=== PATIENT | female | born 1990 | race Caucasian/White ===

== ENCOUNTER 2018-06-22 09:54 | Emergency (ER) | payer OTHER ==
[2018-06-22] MEDS ORDERED: Alum Hydrox/Mag Hydrox/Simeth 30 ML, Lidocaine 2% 15 ML PO ONE ×2 (10:46)
--- NOTE | 2018-06-22 12:00 | EDM.PDOC ---
ED HPI GENERAL MEDICAL PROBLEM - General Chief Complaint: Chest Pain Stated Complaint: CHEST PAIN Time Seen by Provider: 06/22/18 10:14 Source of Information: Reports: Patient History Limitations: Reports: No Limitations - History of Present Illness INITIAL COMMENTS - FREE TEXT/NARRATIVE: 27-year-old female presents to #which is complaints of sudden onset chest pain that started 2 hours ago. She reports the pain as a stabbing pain that radiates to her back. She denies any nausea vomiting shortness of breath, no chills or fever. Patient does report she has a history of bilateral PEs 2 years ago and is currently taking 5 mg daily. She does report feeling a tingling sensation in her face intermittently and does this may be due to her anxiety. Onset: Today, Sudden Onset Date: 06/22/18 Onset Time: 08:00 Duration: Getting Worse Location: Reports: Chest Quality: Reports: Ache Severity: Mild Improves with: Reports: None Worsens with: Reports: None Associated Symptoms: Denies: Cough, Fever/Chills, Shortness of Breath Mid-Sternal Pain Score (Numeric/FACES): 8 - Related Data Allergies Allergy/AdvReac Type Severity Reaction Status Date / Time heparin Allergy Hives Verified 06/22/18 10:08 morphine Allergy Rash Verified 06/22/18 10:08 Home Meds: Home Meds Apixaban [Eliquis] 5 mg PO DAILY 06/22/18 [History] Omeprazole Magnesium [Prilosec Otc] 20 mg PO DAILY 14 Days #21 tablet. [Rx] Sertraline [Zoloft] 200 mg PO DAILY 06/22/18 [History] Past Medical History HEENT History: Reports: Impaired Vision Other HEENT History: wear Cardiovascular History: Reports: Blood Clots/VTE/DVT Social & Family History - Tobacco Use Smoking Status *Q: Never Smoker Second Hand Smoke Exposure: No - Caffeine Use Caffeine Use: Reports: None - Recreational Drug Use Recreational Drug Use: No ED ROS GENERAL - Review of Systems Review Of Systems: See Below Constitutional: Denies: Fever, Chills HEENT: Reports: No Symptoms Respiratory: Reports: Other (History of pulmonary emboli). Denies: Shortness of Breath Cardiovascular: Reports: Chest Pain Endocrine: Reports: No Symptoms GI/Abdominal: Reports: No Symptoms : Reports: No Symptoms Musculoskeletal: Reports: No Symptoms Skin: Reports: No Symptoms Neurological: Reports: No Symptoms Psychiatric: Reports: No Symptoms Hematologic/Lymphatic: Reports: No Symptoms Immunologic: Reports: No Symptoms ED EXAM, GENERAL - Physical Exam Exam: See Below Exam Limited By: No Limitations General Appearance: Alert, WD/WN, No Apparent Distress Head: Atraumatic, Normocephalic Neck: Normal Inspection, Supple, Non-Tender, Full Range of Motion Respiratory/Chest: No Respiratory Distress, Lungs Clear, Normal Breath Sounds, No Accessory Muscle Use, Chest Non-Tender Cardiovascular: Normal Peripheral Pulses, Regular Rate, Rhythm, No Edema, No Gallop, No JVD, No Murmur, No Rub GI/Abdominal: Normal Bowel Sounds, Soft, Non-Tender, No Organomegaly, No Distention, No Abnormal Bruit, No Mass, Pelvis Stable Back Exam: Normal Inspection, Full Range of Motion Extremities: Normal Inspection, Normal Range of Motion, Non-Tender, No Pedal Edema, Normal Capillary Refill Neurological: Alert, Oriented, CN II-XII Intact, Normal Cognition, Normal Gait Psychiatric: Normal Affect, Normal Mood Skin Exam: Warm, Dry, Intact, Normal Color, No Rash Lymphatic: No Adenopathy EKG INTERPRETATION EKG Date: 06/22/18 Time: 10:26 Rhythm: NSR Rate (Beats/Min): 87 EKG Interpretation Comments: Normal sinus rhythm rate of 57. Early RB wave transition, consider RVH, may be related to age. Otherwise normal ECG Course - Vital Signs Last Recorded V/S: Last Vital Signs Temp 97.0 F 06/22/18 10:05 Pulse 93 06/22/18 10:05 Resp 28 H 06/22/18 10:05 BP 144/102 H 06/22/18 10:05 Pulse Ox 100 06/22/18 10:05 - Orders/Labs/Meds Orders: Active Orders 24 hr Category Date Time Status EKG Documentation Completion [RC] STAT Care 06/22/18 10:28 Active Chest 2V [CR] Stat Exams 06/22/18 10:28 Taken Labs: Laboratory Tests 06/22/18 06/22/18 Range/Units 11:10 11:10 WBC 8.02 (3.98-10.04) K/mm3 RBC 4.83 (3.98-5.22) M/mm3 Hgb 13.7 (11.2-15.7) gm/L Hct 41.3 (34.1-44.9) % MCV 85.5 (79.4-94.8) fl MCH 28.4 (25.6-32.2) pg MCHC 33.2 (32.2-35.5) g/dl RDW Std Deviation 42.2 (36.4-46.3) fL Plt Count 232 (182-369) K/mm3 MPV 10.5 (9.4-12.3) fl Neut % (Auto) 57.9 (34.0-71.1) % Lymph % (Auto) 31.9 (19.3-51.7) % [facility] % (Auto) 6.7 (4.7-12.5) % Eos % (Auto) 3.0 (0.7-5.8) Baso % (Auto) 0.4 (0.1-1.2) % Neut # (Auto) 4.64 (1.56-6.13) K/mm3 Lymph # (Auto) 2.56 (1.18-3.74) K/mm3 [facility] # (Auto) 0.54 H (0.24-0.36) K/mm3 Eos # (Auto) 0.24 (0.04-0.36) K/mm3 Baso # (Auto) 0.03 (0.01-0.08) K/mm3 Sodium 139 (136-145) mEq/L Potassium 3.7 (3.5-5.1) mEq/L Chloride 103 (98-107) mEq/L Carbon Dioxide 25 (21-32) mEq/L Anion Gap 14.7 (5-15) BUN 9 (7-18) mg/dL Creatinine 0.8 (0.55-1.02) mg/dL Est Cr Clr Drug Dosing 109.41 mL/min Estimated GFR (MDRD) > 60 (>60) mL/min BUN/Creatinine Ratio 11.3 L (14-18) Glucose 192 H (74-106) mg/dL Calcium 8.6 (8.5-10.1) mg/dL Total Bilirubin 0.5 (0.2-1.0) mg/dL AST 52 H (15-37) U/L ALT 89 H (14-59) U/L Alkaline Phosphatase 56 (46-116) U/L CK-MB (CK-2) < 0.5 (0-3.6) ng/ml Troponin I < 0.017 (0.00-0.056) ng/mL Total Protein 7.9 (6.4-8.2) g/dl Albumin 3.7 (3.4-5.0) g/dl Globulin 4.2 gm/dL Albumin/Globulin Ratio 0.9 L (1-2) Meds: Medications Discontinued Medications Generic Name Dose Route Start Last Admin Trade Name Dar PRN Reason Stop Dose Admin Al Hydroxide/Mg Hydroxide 30 0 ml 06/22/18 10:46 06/22/18 10:56 ml/ Lidocaine HCl 15 ml PO 06/22/18 10:47 45 ml ONETIME ONE Administration - Re-Assessments/Exams Free Text/Narrative Re-Assessment/Exam: 06/22/18 11:54 27-year-old female presents to [facility] chief complaints of sudden onset substernal chest pain. Her chest x-ray was unremarkable. EKG revealed normal sinus rhythm rate 87. WBC 8.02 RBC 4.83 H&H 13.7 and 41.3 She received GI cocktail and her condition improved. I feel that her pain is related to GERD. I will discharge him with Prilosec. Instructed patient on low fat diet. Instructed patient to follow up with her PCP. Instructed patient to continue acute worsening symptoms. 06/22/18 12:08 Sodium 139 potassium 3.7 chloride 103 CO2 25 x 9 creatinine 0.8. Glucose was elevated 192 I think this is stress related. She does have a slightly elevated AST of 52 and ALT of 89. Her troponin is negative at 0.017. I will discharge home on a low-fat diet. Departure - Departure Time of Disposition: 12:08 Disposition: Home, Self-Care 01 Condition: Good Clinical Impression: Atypical chest pain, Esophagitis Prescriptions: Omeprazole Magnesium [Prilosec Otc] 20 mg PO DAILY 14 Days #21 tablet.dr Instructions: Food Choices for Gastroesophageal Reflux Disease, Child, Easy-to- Read, Gastroesophageal Reflux Disease, Adult, [id number] Referrals: Oscar Ferrell MD [Primary Care Provider] - Forms: ED Department Discharge Additional Instructions: You have been diagnosed with having GERD. Your chest x-ray revealed no acute findings. Her EKG was normal sinus rhythm with no irregular beats. Recommend that she follow low-fat diet. Treatment prescribed Prilosec. You should take 2 tablets daily for 7 days then 1 tablet daily. I recommend he follow up with your PCP. Return to the emergency room for any new or acutely worsening symptoms. - My Orders Last 24 Hours: My Active Orders 06/22/18 10:28 EKG Documentation Completion [RC] STAT Chest 2V [CR] Stat - Assessment/Plan Last 24 Hours: My Active Orders 06/22/18 10:28 EKG Documentation Completion [RC] STAT Chest 2V [CR] Stat
--- NOTE | 2018-06-23 08:26 | CR ---
Chest: Two views of the chest were obtained. Comparison: No prior chest x-ray. Heart size and mediastinum are normal. Lungs are clear. Bony structures are unremarkable. Impression: 1. Nothing acute is seen on two-view chest x-ray. Diagnostic code #1
== END 2018-06-22 12:25 | disposition home or self-care (01) ==
LOC: JD.ED 09:54
DX: K20.9 Esophagitis, unspecified (principal); Z88.8 Allergy status to other drugs, medicaments and biological substances
CPT/HCPCS: 36415; 71046; 80053; 82553; 84484; 85025; 93005; 99285; A9270; 93010; 99284

== ENCOUNTER 2020-02-06 20:33 | Emergency (ER) | payer BC, OTHER ==
[2020-02-06] MEDS ORDERED: Dextrose 5%-0.9% NaCl 1,000 ML IV SCH (21:00)
--- NOTE | 2020-02-06 21:07 | EDM.PDOC ---
ED HPI GENERAL MEDICAL PROBLEM - General Chief Complaint: Respiratory Problem Stated Complaint: COVID+/DOUBLE PNEUMONIA/SOB Time Seen by Provider: 02/06/20 20:53 Source of Information: Reports: Patient History Limitations: Reports: No Limitations - History of Present Illness INITIAL COMMENTS - FREE TEXT/NARRATIVE: 29-year-old female presents to the ED due to hypoxemia identified by pulse oximeter at home. Patient started with symptoms last January 29 with fever and chills followed by development of a nonproductive cough. She was tested on Sunday for COVID-19 and found out today that she is COVID-19 positive. She was seen at [facility] today diagnosed with bilateral pneumonia by chest x-ray and started on on Augmentin 875/125 mg twice daily and an albuterol metered-dose inhaler. Patient reports that she has had fairly severe diarrhea 6-8 times per day brown high-volume fluid loss per rectum for the last 4 days. Complete loss of appetite. Thirsty. Patient is on Eliquis 5 mg once daily due to bilateral multiple pulmonary emboli diagnosed 4 years ago after starting oral control pill. 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 She has no known heart disease. She is obese with a BMI of 40.6. She reports pulse oximeter showed sats of 73% at home tonight. Associated course of dyspnea at home. Continues to have a paroxysmal somewhat productive sounding cough of white sputum. Denies any hemoptysis. She states her and son are ill with similar symptoms. Triage nurse placed the patient on 4 L of oxygen per nasal cannula and achieves O2 sats of 98%. O2 sats upon admission to the ED through triage without any oxygen was 83%. Patient reports she cannot lay flat as this makes her coughing and shortness of breath much worse. Onset: Gradual Onset Date: 01/30/20 (Developed symptoms of fever chills body aches headache a week ago.) Duration: Day(s):, Constant, Getting Worse Location: Reports: Chest (.), Generalized (Generalized myalgia with headache), Other ( Paroxysmal cough with productive white sputum. Continues to have fever intermittent chills with complete loss of appetite and associated diarrhea x4 days) Quality: Reports: Other (Generalized myalgia. Complains of thirst and headache) Severity: Severe Improves with: Reports: None Worsens with: Reports: Other (Lying flat makes her much more short of breath as well.), Movement Context: Reports: Sick Contact, Other (Diagnosed with COVID-19 positivity today. Tested on Sunday, February 01). Denies: Activity, Exercise, Lifting, Trauma Associated Symptoms: Reports: Cough, cough w sputum (Paroxysmal cough), Diaphoresis ( white sputum), Fever/Chills, Headaches, Loss of Appetite, Malaise, Nausea/Vomiting, Shortness of Breath, Weakness (Mild nausea no vomiting generalized weakness). Denies: Confusion, Chest Pain, Rash, Seizure, Syncope Treatments CURRICULUM DEVELOPMENT MANAGER: Reports: Acetaminophen Chest Pain Score (Numeric/FACES): 7 - Related Data Allergies Allergy/AdvReac Type Severity Reaction Status Date / Time heparin Allergy Severe Hives Verified 02/06/20 21:04 morphine Allergy Severe Rash Verified 02/06/20 21:04 Home Meds: Home Meds Apixaban [Eliquis] 5 mg PO DAILY 06/22/18 [History] Sertraline [Zoloft] 200 mg PO DAILY 06/22/18 [History] Albuterol Sulfate [Proventil Hfa] 2 puff INH ASDIRECTED 02/06/20 [History] Amoxicillin/Clavulanate K [Augmentin 875-125 MG] 1 tab PO BID 02/06/20 [History] Past Medical History HEENT History: Reports: Impaired Vision Other HEENT History: wear Cardiovascular History: Reports: Blood Clots/VTE/DVT Respiratory History: Reports: Other (See Below) (Patient was diagnosed with bi lateral multiple pulmonary emboli 4 days after starting oral contraceptive pill 4 years ago. Subsequently was identified to be protein S deficient and is maintained on Eliquis 5 mg once daily. She does not know if she has any evidence of pulmonary hypertension on echocardiogram.) Psychiatric History: Reports: Anxiety, Depression Social & Family History - Caffeine Use Caffeine Use: Reports: None - Living Situation & Occupation Living situation: Reports: (Recently got . Is a son at home. Both her and son have signs and symptoms of COVID-19 illness.), with Spouse Occupation: Unemployed ED ROS GENERAL - Review of Systems Review Of Systems: See Below Constitutional: Reports: Fever, Chills, Malaise, Weakness, Fatigue, Diaphoresis, Decreased Appetite HEENT: Reports: Other Respiratory: Reports: Shortness of Breath (Feels thirsty with very dry mouth.), Cough, Sputum (Of your paroxysmal cough to the point of near syncope.), Other (Struve bilateral pulmonary emboli diagnosed 4 years ago 4 days after starting oral contraceptive pill. Subsequently identified to be protein S deficient and required Eliquis 5 mg once daily which she remains on.). Denies: Wheezing, Pleuritic Chest Pain, Hemoptysis (White sputum no hemoptysis.) Cardiovascular: Reports: Chest Pain (Upper anterior chest pain from coughing so much.), Dyspnea on Exertion, Lightheadedness, Orthopnea. Denies: Blood Pressure Problem, Claudication, Edema, Palpitations Endocrine: Reports: Fatigue GI/Abdominal: Reports: Anorexia, Diarrhea (States diarrhea is high-volume fluid loss of brownish in color at x4 to 6/day for the last 4 days.), Nausea. Denies: Vomiting : Reports: No Symptoms Musculoskeletal: Reports: Muscle Pain (Neurolyse myalgia particularly neck low back and thighs.) Skin: Reports: No Symptoms Neurological: Reports: Dizziness, Headache, Difficulty Walking (Weakness. Also shortness of breath.), Weakness. Denies: Confusion Psychiatric: Reports: Anxiety (History of depression and anxiety), Depression Hematologic/Lymphatic: Reports: No Symptoms ( on sertraline once daily) Immunologic: Reports: No Symptoms ED EXAM, GENERAL - Physical Exam Exam: See Below Exam Limited By: No Limitations General Appearance: Alert, WD/WN, Anxious (Zackery anxious.), Moderate Distress, Obese (BMI is greater than 40.), Other (Temperature is 37.8. Heart rate 111 at the bedside respiratory 24 to 26/min with O2 sats of 83% on room air. Improved to 97% on 4 L. Subsequently reduced to 2 L/min with maintenance of O2 sats of 94%.) Eye Exam: Bilateral Eye: Normal Inspection (No scleral icterus or blepharal pallor.), PERRL Throat/Mouth: Other (Tongue is dry and coated.) Head: Atraumatic ( No oropharyngeal infection.), Normocephalic Neck: Normal Inspection, Supple, Non-Tender, Full Range of Motion. No: Carotid Bruit, Lymphadenopathy (L), Lymphadenopathy (R), Thyromegaly Respiratory/Chest: No Accessory Muscle Use, Respiratory Distress (Tachypnea at rest 24 to 26/min with O2 sats of only 83% on room air.), Decreased Breath Sounds (Breath sounds are mildly decreased to the lower 20% of lung cardenas bilaterally), Rales. No: Lungs Clear, Normal Breath Sounds, Rhonchi, Wheezing (Fine rales scattered throughout the posterior lung cardenas bilaterally.) Cardiovascular: Normal Peripheral Pulses, No Edema, No Gallop (Sinus tachycardia at 110/min.), No Murmur, No Rub, Tachycardia Peripheral Pulses: 2+: Posterior Tibial (L), Posterior Tibial (R), Dorsalis Pedis (L), Dorsalis Pedis (R), 3+: Carotid (L), Carotid (R) GI/Abdominal: Normal Bowel Sounds, Soft, Non-Tender, No Organomegaly, No Mass, Pelvis Stable, Other (Abdominal girth limits ability to palpate solid organs. No surgical scars.) Extremities: Normal Inspection, Normal Range of Motion, Non-Tender, No Pedal Edema Neurological: Alert, Oriented, CN II-XII Intact, Normal Cognition Psychiatric: Anxious Skin Exam: Warm, Dry, Intact, Normal Color, No Rash #1 Interpretation EKG Date: 02/06/20 Time: 21:28 Rhythm: Other (Sinus tachycardia) Rate (Beats/Min): 102 Etlan: LAD-Left Etlan Deviation (Left axis deviation of -27 degrees) P-Wave: Present QRS: Other (RSR prime wave lead V1 consider normal variant. Early R wave transition consider right ventricular hypertrophy versus septal hypertrophy pa ttern. Left ventricular hypertrophy pattern due to tall R waves noted in lead I.) ST-T: Other (T wave inversion/flattening aVF nonspecific finding similar finding in V3 V4 V5 and V6.) QT: Normal EKG Interpretation Comments: Abnormal ECG Course - Vital Signs Last Recorded V/S: Last Vital Signs Temp 37.8 C 02/06/20 21:03 Pulse 93 02/07/20 04:27 Resp 16 02/07/20 04:27 BP 143/89 H 02/06/20 21:03 Pulse Ox 94 L 02/07/20 04:27 - Orders/Labs/Meds Orders: Active Orders 24 hr Category Date Time Status Blood Glucose Check, Bedside [RC] Q2HR Care 02/07/20 02:00 Active EKG Documentation Completion [RC] STAT Care 02/06/20 20:54 Active Chest 1V Frontal [CR] Stat Exams 02/06/20 20:54 Taken CULTURE URINE [RM] Stat Lab 02/07/20 02:26 Received Sodium Chloride 0.9% [Normal Saline] 1,000 ml Med 02/06/20 22:30 Active IV ASDIRECTED Medication Orders Sodium Chloride (Normal Saline) 1,000 mls @ 150 mls/hr IV ASDIRECTED JAIRO Last Admin: 02/06/20 22:50 Dose: 150 mls/hr Documented by: FRANCISCO JAVIER Labs: Laboratory Tests 02/06/20 02/06/20 02/06/20 Range/Units 21:21 21:48 21:48 WBC 4.69 (3.98-10.04) K/mm3 RBC 4.85 (3.98-5.22) M/mm3 Hgb 13.8 (11.2-15.7) gm/dl Hct 40.4 (34.1-44.9) % MCV 83.3 (79.4-94.8) fl MCH 28.5 (25.6-32.2) pg MCHC 34.2 (32.2-35.5) g/dl RDW Std Deviation 43.4 (36.4-46.3) fL Plt Count 174 L (182-369) K/mm3 MPV 10.9 (9.4-12.3) fl Neut % (Auto) 52.5 (34.0-71.1) % Lymph % (Auto) 36.0 (19.3-51.7) % [place] % (Auto) 11.3 (4.7-12.5) % Eos % (Auto) 0 L (0.7-5.8) Baso % (Auto) 0.2 (0.1-1.2) % Neut # (Auto) 2.46 (1.56-6.13) K/mm3 Lymph # (Auto) 1.69 (1.18-3.74) K/mm3 [place] # (Auto) 0.53 H (0.24-0.36) K/mm3 Eos # (Auto) 0.00 L (0.04-0.36) K/mm3 Baso # (Auto) 0.01 (0.01-0.08) K/mm3 ESR 67 H (0-20) mm/hr PT (9.7-12.0) SECONDS INR APTT (21.7-31.4) SECONDS D-Dimer, Quantitative (0.19-0.50) mg/L Puncture Site Lt radial ABG pH 7.46 H (7.35-7.45) ABG pCO2 34.2 L (35.0-45.0) mmHg ABG pO2 55.0 L (80.0-100.0) mmHg ABG HCO3 23.8 (22.0-26.0) meq/L ABG O2 Saturation 88.4 L (96.0-97.0) % ABG Base Excess 0.9 (-2-2.0) Louis Test Positive O2 Delivery Device Room air Oxygen Flow Rate 0.0 FiO2 21.00 (21.00-100.00) % Sodium (136-145) mEq/L Potassium (3.5-5.1) mEq/L Chloride (98-107) mEq/L Carbon Dioxide (21-32) mEq/L Anion Gap (5-15) BUN (7-18) mg/dL Creatinine (0.55-1.02) mg/dL Est Cr Clr Drug Dosing mL/min Estimated GFR (MDRD) (>60) mL/min BUN/Creatinine Ratio (14-18) Glucose (74-106) mg/dL POC Glucose (70-105) mg/dL Hemoglobin A1c (4.50-6.20) % Serum Osmolality (280-300) mosm/kg Lactic Acid (0.4-2.0) mmol/L Calcium (8.5-10.1) mg/dL Magnesium (1.8-2.4) mg/dl Ferritin (8-252) ng/ml Total Bilirubin (0.2-1.0) mg/dL AST (15-37) U/L ALT (14-59) U/L Alkaline Phosphatase (46-116) U/L Lactate Dehydrogenase (81-234) U/L Troponin I (0.00-0.056) ng/mL C-Reactive Protein (<1.0) mg/dL NT-Pro-B Natriuret Pep (0-125) pg/mL Total Protein (6.4-8.2) g/dl Albumin (3.4-5.0) g/dl Globulin gm/dL Albumin/Globulin Ratio (1-2) Urine Color (Yellow) Urine Appearance (Clear) Urine pH (5.0-8.0) Ur Specific [place] (1.005-1.030) Urine Protein (Negative) Urine Glucose (UA) (Negative) Urine Ketones (Negative) Urine Occult Blood (Negative) Urine Nitrite (Negative) Urine Bilirubin (Negative) Urine Urobilinogen (0.2-1.0) Ur Leukocyte Esterase (Negative) Urine RBC (0-5) /hpf Urine WBC (0-5) /hpf Ur Squamous Epith Cells (0-5) /hpf Urine Bacteria (FEW) /hpf Urine Mucus (FEW) /hpf Ketones (0.0-0.3) mM 02/06/20 02/06/20 02/06/20 Range/Units 21:48 21:48 21:48 WBC (3.98-10.04) K/mm3 RBC (3.98-5.22) M/mm3 Hgb (11.2-15.7) gm/dl Hct (34.1-44.9) % MCV (79.4-94.8) fl MCH (25.6-32.2) pg MCHC (32.2-35.5) g/dl RDW Std Deviation (36.4-46.3) fL Plt Count (182-369) K/mm3 MPV (9.4-12.3) fl Neut % (Auto) (34.0-71.1) % Lymph % (Auto) (19.3-51.7) % [place] % (Auto) (4.7-12.5) % Eos % (Auto) (0.7-5.8) Baso % (Auto) (0.1-1.2) % Neut # (Auto) (1.56-6.13) K/mm3 Lymph # (Auto) (1.18-3.74) K/mm3 [place] # (Auto) (0.24-0.36) K/mm3 Eos # (Auto) (0.04-0.36) K/mm3 Baso # (Auto) (0.01-0.08) K/mm3 ESR (0-20) mm/hr PT (9.7-12.0) SECONDS INR APTT (21.7-31.4) SECONDS D-Dimer, Quantitative (0.19-0.50) mg/L Puncture Site ABG pH (7.35-7.45) ABG pCO2 (35.0-45.0) mmHg ABG pO2 (80.0-100.0) mmHg ABG HCO3 (22.0-26.0) meq/L ABG O2 Saturation (96.0-97.0) % ABG Base Excess (-2-2.0) Louis Test O2 Delivery Device Oxygen Flow Rate FiO2 (21.00-100.00) % Sodium (136-145) mEq/L Potassium (3.5-5.1) mEq/L Chloride (98-107) mEq/L Carbon Dioxide (21-32) mEq/L Anion Gap (5-15) BUN (7-18) mg/dL Creatinine (0.55-1.02) mg/dL Est Cr Clr Drug Dosing mL/min Estimated GFR (MDRD) (>60) mL/min BUN/Creatinine Ratio (14-18) Glucose (74-106) mg/dL POC Glucose (70-105) mg/dL Hemoglobin A1c 11.50 H (4.50-6.20) % Serum Osmolality 305 H (280-300) mosm/kg Lactic Acid 1.1 (0.4-2.0) mmol/L Calcium (8.5-10.1) mg/dL Magnesium (1.8-2.4) mg/dl Ferritin (8-252) ng/ml Total Bilirubin (0.2-1.0) mg/dL AST (15-37) U/L ALT (14-59) U/L Alkaline Phosphatase (46-116) U/L Lactate Dehydrogenase (81-234) U/L Troponin I (0.00-0.056) ng/mL C-Reactive Protein (<1.0) mg/dL NT-Pro-B Natriuret Pep (0-125) pg/mL Total Protein (6.4-8.2) g/dl Albumin (3.4-5.0) g/dl Globulin gm/dL Albumin/Globulin Ratio (1-2) Urine Color (Yellow) Urine Appearance (Clear) Urine pH (5.0-8.0) Ur Specific [place] (1.005-1.030) Urine Protein (Negative) Urine Glucose (UA) (Negative) Urine Ketones (Negative) Urine Occult Blood (Negative) Urine Nitrite (Negative) Urine Bilirubin (Negative) Urine Urobilinogen (0.2-1.0) Ur Leukocyte Esterase (Negative) Urine RBC (0-5) /hpf Urine WBC (0-5) /hpf Ur Squamous Epith Cells (0-5) /hpf Urine Bacteria (FEW) /hpf Urine Mucus (FEW) /hpf Ketones (0.0-0.3) mM 02/06/20 02/06/20 02/06/20 Range/Units 21:48 22:25 22:25 WBC (3.98-10.04) K/mm3 RBC (3.98-5.22) M/mm3 Hgb (11.2-15.7) gm/dl Hct (34.1-44.9) % MCV (79.4-94.8) fl MCH (25.6-32.2) pg MCHC (32.2-35.5) g/dl RDW Std Deviation (36.4-46.3) fL Plt Count (182-369) K/mm3 MPV (9.4-12.3) fl Neut % (Auto) (34.0-71.1) % Lymph % (Auto) (19.3-51.7) % [place] % (Auto) (4.7-12.5) % Eos % (Auto) (0.7-5.8) Baso % (Auto) (0.1-1.2) % Neut # (Auto) (1.56-6.13) K/mm3 Lymph # (Auto) (1.18-3.74) K/mm3 [place] # (Auto) (0.24-0.36) K/mm3 Eos # (Auto) (0.04-0.36) K/mm3 Baso # (Auto) (0.01-0.08) K/mm3 ESR (0-20) mm/hr PT 10.2 (9.7-12.0) SECONDS INR 0.95 APTT 25.0 (21.7-31.4) SECONDS D-Dimer, Quantitative 0.59 H (0.19-0.50) mg/L Puncture Site ABG pH (7.35-7.45) ABG pCO2 (35.0-45.0) mmHg ABG pO2 (80.0-100.0) mmHg ABG HCO3 (22.0-26.0) meq/L ABG O2 Saturation (96.0-97.0) % ABG Base Excess (-2-2.0) Louis Test O2 Delivery Device Oxygen Flow Rate FiO2 (21.00-100.00) % Sodium 135 L (136-145) mEq/L Potassium 3.8 (3.5-5.1) mEq/L Chloride 98 (98-107) mEq/L Carbon Dioxide 23 (21-32) mEq/L Anion Gap 17.8 H (5-15) BUN 7 (7-18) mg/dL Creatinine 0.8 (0.55-1.02) mg/dL Est Cr Clr Drug Dosing 107.46 mL/min Estimated GFR (MDRD) > 60 (>60) mL/min BUN/Creatinine Ratio 8.8 L (14-18) Glucose 406 H (74-106) mg/dL POC Glucose (70-105) mg/dL Hemoglobin A1c (4.50-6.20) % Serum Osmolality (280-300) mosm/kg Lactic Acid (0.4-2.0) mmol/L Calcium 8.7 (8.5-10.1) mg/dL Magnesium 1.7 L (1.8-2.4) mg/dl Ferritin (8-252) ng/ml Total Bilirubin 0.4 (0.2-1.0) mg/dL AST 63 H (15-37) U/L ALT 116 H (14-59) U/L Alkaline Phosphatase 70 (46-116) U/L Lactate Dehydrogenase 223 (81-234) U/L Troponin I < 0.017 (0.00-0.056) ng/mL C-Reactive Protein 11.1 H* (<1.0) mg/dL NT-Pro-B Natriuret Pep (0-125) pg/mL Total Protein 8.0 (6.4-8.2) g/dl Albumin 3.2 L (3.4-5.0) g/dl Globulin 4.8 gm/dL Albumin/Globulin Ratio 0.7 L (1-2) Urine Color (Yellow) Urine Appearance (Clear) Urine pH (5.0-8.0) Ur Specific [place] (1.005-1.030) Urine Protein (Negative) Urine Glucose (UA) (Negative) Urine Ketones (Negative) Urine Occult Blood (Negative) Urine Nitrite (Negative) Urine Bilirubin (Negative) Urine Urobilinogen (0.2-1.0) Ur Leukocyte Esterase (Negative) Urine RBC (0-5) /hpf Urine WBC (0-5) /hpf Ur Squamous Epith Cells (0-5) /hpf Urine Bacteria (FEW) /hpf Urine Mucus (FEW) /hpf Ketones 0.74 (0.0-0.3) mM 02/06/20 02/06/20 02/06/20 Range/Units 22:25 22:25 22:35 WBC (3.98-10.04) K/mm3 RBC (3.98-5.22) M/mm3 Hgb (11.2-15.7) gm/dl Hct (34.1-44.9) % MCV (79.4-94.8) fl MCH (25.6-32.2) pg MCHC (32.2-35.5) g/dl RDW Std Deviation (36.4-46.3) fL Plt Count (182-369) K/mm3 MPV (9.4-12.3) fl Neut % (Auto) (34.0-71.1) % Lymph % (Auto) (19.3-51.7) % [place] % (Auto) (4.7-12.5) % Eos % (Auto) (0.7-5.8) Baso % (Auto) (0.1-1.2) % Neut # (Auto) (1.56-6.13) K/mm3 Lymph # (Auto) (1.18-3.74) K/mm3 [place] # (Auto) (0.24-0.36) K/mm3 Eos # (Auto) (0.04-0.36) K/mm3 Baso # (Auto) (0.01-0.08) K/mm3 ESR (0-20) mm/hr PT (9.7-12.0) SECONDS INR APTT (21.7-31.4) SECONDS D-Dimer, Quantitative (0.19-0.50) mg/L Puncture Site ABG pH (7.35-7.45) ABG pCO2 (35.0-45.0) mmHg ABG pO2 (80.0-100.0) mmHg ABG HCO3 (22.0-26.0) meq/L ABG O2 Saturation (96.0-97.0) % ABG Base Excess (-2-2.0) Louis Test O2 Delivery Device Oxygen Flow Rate FiO2 (21.00-100.00) % Sodium (136-145) mEq/L Potassium (3.5-5.1) mEq/L Chloride (98-107) mEq/L Carbon Dioxide (21-32) mEq/L Anion Gap (5-15) BUN (7-18) mg/dL Creatinine (0.55-1.02) mg/dL Est Cr Clr Drug Dosing mL/min Estimated GFR (MDRD) (>60) mL/min BUN/Creatinine Ratio (14-18) Glucose (74-106) mg/dL POC Glucose (70-105) mg/dL Hemoglobin A1c (4.50-6.20) % Serum Osmolality (280-300) mosm/kg Lactic Acid (0.4-2.0) mmol/L Calcium (8.5-10.1) mg/dL Magnesium (1.8-2.4) mg/dl Ferritin 369 H (8-252) ng/ml Total Bilirubin (0.2-1.0) mg/dL AST (15-37) U/L ALT (14-59) U/L Alkaline Phosphatase (46-116) U/L Lactate Dehydrogenase (81-234) U/L Troponin I (0.00-0.056) ng/mL C-Reactive Protein (<1.0) mg/dL NT-Pro-B Natriuret Pep 18 (0-125) pg/mL Total Protein (6.4-8.2) g/dl Albumin (3.4-5.0) g/dl Globulin gm/dL Albumin/Globulin Ratio (1-2) Urine Color Yellow (Yellow) Urine Appearance Slt cloudy H (Clear) Urine pH 6.0 (5.0-8.0) Ur Specific [place] 1.025 (1.005-1.030) Urine Protein 2+ H (Negative) Urine Glucose (UA) 2+ H (Negative) Urine Ketones 2+ H (Negative) Urine Occult Blood 3+ H (Negative) Urine Nitrite Negative (Negative) Urine Bilirubin Negative (Negative) Urine Urobilinogen 0.2 (0.2-1.0) Ur Leukocyte Esterase Negative (Negative) Urine RBC 20-30 H (0-5) /hpf Urine WBC 5-10 H (0-5) /hpf Ur Squamous Epith Cells 10-20 H (0-5) /hpf Urine Bacteria Few (FEW) /hpf Urine Mucus Few (FEW) /hpf Ketones (0.0-0.3) mM 02/07/20 02/07/20 Range/Units 02:09 04:15 WBC (3.98-10.04) K/mm3 RBC (3.98-5.22) M/mm3 Hgb (11.2-15.7) gm/dl Hct (34.1-44.9) % MCV (79.4-94.8) fl MCH (25.6-32.2) pg MCHC (32.2-35.5) g/dl RDW Std Deviation (36.4-46.3) fL Plt Count (182-369) K/mm3 MPV (9.4-12.3) fl Neut % (Auto) (34.0-71.1) % Lymph % (Auto) (19.3-51.7) % [place] % (Auto) (4.7-12.5) % Eos % (Auto) (0.7-5.8) Baso % (Auto) (0.1-1.2) % Neut # (Auto) (1.56-6.13) K/mm3 Lymph # (Auto) (1.18-3.74) K/mm3 [place] # (Auto) (0.24-0.36) K/mm3 Eos # (Auto) (0.04-0.36) K/mm3 Baso # (Auto) (0.01-0.08) K/mm3 ESR (0-20) mm/hr PT (9.7-12.0) SECONDS INR APTT (21.7-31.4) SECONDS D-Dimer, Quantitative (0.19-0.50) mg/L Puncture Site ABG pH (7.35-7.45) ABG pCO2 (35.0-45.0) mmHg ABG pO2 (80.0-100.0) mmHg ABG HCO3 (22.0-26.0) meq/L ABG O2 Saturation (96.0-97.0) % ABG Base Excess (-2-2.0) Louis Test O2 Delivery Device Oxygen Flow Rate FiO2 (21.00-100.00) % Sodium (136-145) mEq/L Potassium (3.5-5.1) mEq/L Chloride (98-107) mEq/L Carbon Dioxide (21-32) mEq/L Anion Gap (5-15) BUN (7-18) mg/dL Creatinine (0.55-1.02) mg/dL Est Cr Clr Drug Dosing mL/min Estimated GFR (MDRD) (>60) mL/min BUN/Creatinine Ratio (14-18) Glucose (74-106) mg/dL POC Glucose 315 H 274 H (70-105) mg/dL Hemoglobin A1c (4.50-6.20) % Serum Osmolality (280-300) mosm/kg Lactic Acid (0.4-2.0) mmol/L Calcium (8.5-10.1) mg/dL Magnesium (1.8-2.4) mg/dl Ferritin (8-252) ng/ml Total Bilirubin (0.2-1.0) mg/dL AST (15-37) U/L ALT (14-59) U/L Alkaline Phosphatase (46-116) U/L Lactate Dehydrogenase (81-234) U/L Troponin I (0.00-0.056) ng/mL C-Reactive Protein (<1.0) mg/dL NT-Pro-B Natriuret Pep (0-125) pg/mL Total Protein (6.4-8.2) g/dl Albumin (3.4-5.0) g/dl Globulin gm/dL Albumin/Globulin Ratio (1-2) Urine Color (Yellow) Urine Appearance (Clear) Urine pH (5.0-8.0) Ur Specific [place] (1.005-1.030) Urine Protein (Negative) Urine Glucose (UA) (Negative) Urine Ketones (Negative) Urine Occult Blood (Negative) Urine Nitrite (Negative) Urine Bilirubin (Negative) Urine Urobilinogen (0.2-1.0) Ur Leukocyte Esterase (Negative) Urine RBC (0-5) /hpf Urine WBC (0-5) /hpf Ur Squamous Epith Cells (0-5) /hpf Urine Bacteria (FEW) /hpf Urine Mucus (FEW) /hpf Ketones (0.0-0.3) mM Meds: Medications Generic Name Dose Route Start Last Admin Trade Name Dar PRN Reason Stop Dose Admin Sodium Chloride 1,000 mls @ 150 mls/hr 02/06/20 22:30 02/06/20 22:50 Normal Saline IV 150 mls/hr ASDIRECTED JAIRO Administration Discontinued Medications Generic Name Dose Route Start Last Admin Trade Name Dar PRN Reason Stop Dose Admin Dextrose/Sodium Chloride 1,000 mls @ 100 mls/hr 02/06/20 21:00 02/06/20 21:53 Dextrose 5%-Normal Saline IV 100 mls/hr ASDIRECTED JAIRO Administration Remdesivir 200 mg/ Sodium 250 mls @ 250 mls/hr 02/06/20 23:20 02/07/20 00:08 Chloride IV 02/06/20 23:21 250 mls/hr ONETIME ONE Administration Insulin Glargine 10 unit 02/06/20 23:06 02/07/20 00:05 Lantus SUBCUT 02/06/20 23:07 10 units ONETIME ONE Administration Insulin Human Regular 18 unit 02/06/20 23:07 02/07/20 00:02 Humulin R SUBCUT 02/06/20 23:08 18 unit ONETIME ONE Administration Insulin Human Regular 12 unit 02/07/20 02:13 02/07/20 02:25 Humulin R SUBCUT 02/07/20 02:14 12 unit ONETIME ONE Administration Ondansetron HCl 4 mg 02/06/20 21:09 02/06/20 21:53 Zofran IVPUSH 02/06/20 21:10 4 mg ONETIME ONE Administration - Radiology Interpretation Free Text/Narrative:: 29-year-old female presents to the ED due to hypoxemia identified by home pulse oximetry reportedly of 73%. Patient developed symptoms of fever chills headache and body ache 1 week ago January 29. Tested on February 01 for COVID- 19 and proved positive today. Chest x-ray done in the clinic today suggest bilateral pneumonia and the patient was started on Augmentin 8 7 5/125 mg twice daily and a albuterol metered-dose inhaler. She was sent home with a pulse oximeter. Patient continues to have severe paroxysmal cough tonight. Cannot lie flat due to increased hypoxia and shortness of breath. O2 sats upon arrival in the ED were 83% on room air. She was placed by triage nurse on 4 L/min by nasal cannula subsequently reduced to 2 L/min to maintain O2 sats of 94%. Plan will be to take her off oxygen completely for 5 to 10 minutes and do an ABG. Then replace her back on oxygen at 2 L/min. X-ray will be repeated at this time. Routine labs for COVID-19 to be done. Of note the patient is on Eliquis 5 mg once daily for protein S deficiency with past history of bilateral multiple pulmonary emboli diagnosed 4 years ago. Is unclear whether she has underlying pulmonary hypertension. It appears she is going to require admission to a hospital for treatment of her right hypoxemia with likely requirement for remdesivir and steroids. She denies any history of known diabetes. Her risk factors are that of obesity with a BMI greater than 40. IV will be D5 normal saline at 125 mils per hour as the patient is had very poor oral intake with associated high-volume diarrhea x4 days and anorexia. - Re-Assessments/Exams Free Text/Narrative Re-Assessment/Exam: 02/06/20 21:45: Portable chest x-ray does reveal patchy parenchymal opacities in both lower lobes of the lungs compatible with COVID-19 pneumonia. There are no pleural effusions no pneumothorax. Heart size is normal and the mediastinal and hilar contours are normal. The pulmonary vessels do not appear prominent. Known to be COVID-19 positive. 2 sats are 96 to 97% using 2 L of oxygen per nasal cannula. 02/06/20 22:14 Total white count is 4.69 with auto differential showing 52.5% neutrophils. Hemoglobin is 13.8 with hematocrit of 40.4. Platelet count 174,000. ABGs revealed a pH of 7.46 with a PCO2 of 34.2. PO2 of 55.0 bicarb of 23.8 O2 saturation of 88% done on room air. 02/06/20 22:26 Lactic acid is 1.1. Glycosylated protein just returned markedly elevated at 11.5 indicating the patient has occult type 2 diabetes. IV will be changed from D5 normal saline which was running at 150 mils per hour to normal saline at 150 mils per hour. Serum ketones and serum osmolality ordered at this time. Blood sugar is pending. 02/06/20 22:47 serum ketones are mildly elevated at 0.74. 02/06/20 23:06 Chemistry is now back. Sodium is 135 with a potassium of 3.8. Chloride is 98 with a bicarb of 23. Anion gap mildly elevated at 17.8. BUN is 7 with a creatinine of 0.8. GFR is greater than 60. Glucose is elevated at 406. Hemoglobin A1c previously reported at 11.50. Serum osmolality is 305. Calcium is 8.7. Magnesium slightly low at 1.7. Bilirubin is 0.4 with AST slightly elevated at 63 and an ALT of 116. Alk phosphatase normal at 70. LDH is 223. Troponin I is less than 0.017. C-reactive protein is elevated at 11.1. Total protein 8.0 with an albumin fraction of 3.2 02/06/20 23:16 I have discussed the patient with 1 call nurse at [facility] in [place]. Currently they have 3 beds available for Covid patients but they have 5 patient is in the emergency room with COVID-19 diagnosis at this time. It is unclear whether all of those will require admission however. Therefore the patient was placed on a waiting list and 1 call nurse will get back to me at some point in time over the next 6 or 7 hours. We do not have an ambulance to provide transport to [place] at this time and not likely till 0600 hrs. in the morning at any rate. Patient will be started on insulin both long- acting insulin given 10 units of Lantus subcutaneously and 18 units of regular insulin subcu at this time. Blood sugar will be checked in 2 hours time. Patient will be started on remdesivir 200 mg intravenously at this time. Steroids will be withheld because of new onset type 2 diabetes which will be aggravated by intravenous steroids. 02/07/20 02:14 and has been able to sleep. 0200 blood sugar that I ordered came back at 315. I am going to therefore give her 12 units of regular insulin reese bcutaneously at this time. Next blood sugar will be rechecked in 2 hours. Still do not have a definitive bed placement for this patient. I am now going to check with [facility] in [place] once again through the 1 call nurse service. 02/07/20 02:29 Urinalysis reveals slightly cloudy urine with 2+ proteinuria 2+ glucosuria 2+ ketones and 3+ occult blood. The slide shows negative leukocyte esterase with 20-30 RBCs per high-power field and 5-10 WBCs with 10-20 squamous epithelial cells. Urine culture will be obtained. Note the patient did receive 2 doses of Augmentin 875/125mg yesterday for pneumonia diagnosed by x-ray at the clinic. I have rechecked possibility of bed in [place] Covid unit at [facility] and 1 call nurse felt that all the beds were full at this time. I t herefore did contact 1 call [facility] in [place] and they do have a bed available for the patient. However as I was discussing the case with 1 call nurse in [place],the [place] [id number] call nurse called back and indicated that a bed has become available. She will therefore be attentive to be transferred to [facility] in [place] per ground ambulance once the neck screw becomes available at 0600 hrs. nonstandard time this morning. We are instructed to call [facility] in [place] prior to patient leaving our hospital. 02/07/20 04:21 0400-- blood sugar is 274. No further insulin will be given at this time. Rate is 91 and sinus with O2 sats of 94% on 2 L. Blood pressure is 130/84 02/07/20 06:09 Blood sugar is now 239. No further insulin at this time. Blood pressure is 138 86. O2 sats 93 3 to 94% on 2 L/min by nasal cannula. Respiratory 22/min. Current temperature is 37.6 degrees. She will therefore be given Tylenol 975 mg by mouth. 02/07/20 06:27 I have discussed the case with Dr. Dobson on-call hospitalist at [facility]. She has accepted care of this patient and patient will be now transferred per ambulance to that facility. Her delay in transfer was due to lack of ambulance service until this time. Also there was no confirmed to bed at [facility] until after 0220 hrs. this morning. Departure - Departure Time of Disposition: 06:29 Disposition: DC/Tfer to Acute Hospital 02 Condition: Fair Clinical Impression: Hypoxia, COVID-19, New onset type 1 diabetes mellitus, uncontrolled, Viral pneumonia Obesity Qualifiers: Obesity type: due to excess calories Obesity classification: adult class 3 (BMI >= 40) Serious obesity comorbidity presence: with serious comorbidity - Discharge Information *PRESCRIPTION DRUG MONITORING PROGRAM REVIEWED*: Not Applicable *COPY OF PRESCRIPTION DRUG MONITORING REPORT IN PATIENT SILVIA: Not Applicable Referrals: Anh Barragan PA-C [Primary Care Provider] - Forms: ED Department Discharge Additional Instructions: Patient will be transferred to [facility] in [place] for care of COVID-19 illness due to hypoxia on room air. Delay in transfer occurred because of unavailability of a bed initially at [facility] in [place] and then lack of availability of ambulance transport until 0600 hrs. this morning. Because of this patient has received initial dose of remdesivir 200 mg IV. Maintained on oxygen at 2 L/min by nasal cannula to achieve O2 sats of 95 to 96% at rest. Discovery of new onset type 2 diabetes with a blood sugar of 406 and a hemoglobin A1c of 11.5. Thus started on insulin Lantus 10 units subcu and initial dose of regular insulin of 18 units. This was subsequently followed by 12 further units at 0230 hrs. due to blood sugar of 315. Blood sugar at the time of discharge was down to 234. And has been maintained on normal saline at 125 mils per hour throughout the night due to volume depletion and to correct mild diabetic ketoacidosis. History of bilateral pulmonary emboli 4 years ago after starting oral contraceptive pill. 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 Sepsis Event Note (ED) - Focused Exam Vital Signs: Vital Signs Temp Pulse Resp BP Pulse Ox 02/07/20 04:27 93 16 94 L 02/06/20 21:03 37.8 C 111 H 24 H 143/89 H 83 L - My Orders Last 24 Hours: My Active Orders 02/06/20 20:54 EKG Documentation Completion [RC] STAT Chest 1V Frontal [CR] Stat 02/06/20 22:30 Sodium Chloride 0.9% [Normal Saline] 1,000 ml IV ASDIRECTED 02/07/20 02:00 Blood Glucose Check, Bedside [RC] Q2HR 02/07/20 02:26 CULTURE URINE [RM] Stat - Assessment/Plan Last 24 Hours: My Active Orders 02/06/20 20:54 EKG Documentation Completion [RC] STAT Chest 1V Frontal [CR] Stat 02/06/20 22:30 Sodium Chloride 0.9% [Normal Saline] 1,000 ml IV ASDIRECTED 02/07/20 02:00 Blood Glucose Check, Bedside [RC] Q2HR 02/07/20 02:26 CULTURE URINE [RM] Stat
[2020-02-06] MEDS ORDERED: Ondansetron 4 MG/2 ML SDV IVPUSH ONE (21:09)
[2020-02-06 22:19] LABS: HEMOGLOBIN A1C 11.5 % (4.50-6.20)
[2020-02-06] MEDS ORDERED: Sodium Chloride 0.9% 1,000 ML IV SCH (22:30)
[2020-02-06] MEDS ORDERED: Insulin Glarg,Human.Rec.Analog 100 Unit/ML SUBCUT ONE (23:06)
[2020-02-06] MEDS ORDERED: Insulin Regular, Human 100 Units/ML 3 ML Vial SUBCUT ONE (23:07)
[2020-02-06] MEDS ORDERED: REMDESIVIR 200 MG in Sodium Chloride 0.9% 250 ML IV ONE (23:20)
[2020-02-07] MEDS ORDERED: Insulin Regular, Human 100 Units/ML 3 ML Vial SUBCUT ONE (02:13)
[2020-02-07] MEDS ORDERED: Acetaminophen 325 MG Tab PO ONE (06:22)
--- NOTE | 2020-02-09 10:47 | CR ---
PROCEDURE INFORMATION: Exam: XR Chest, 1 View Exam date and time: 02/06/2020 8:43 PM Age: 29 years old Clinical indication: Patient HX: Covid positive, cough; Additional info: Prior report scanned in for your review TECHNIQUE: Imaging protocol: XR of the chest Views: 1 view. COMPARISON: DX Chest 2V 06/22/2018 10:40 AM FINDINGS: Lungs: There are patchy parenchymal opacities at the right lung base. The left lung is grossly clear. Pleural space: There are no pleural effusions. There is no pneumothorax. Heart/Mediastinum: The heart size is normal as are the mediastinal and hilar contours. The pulmonary vessels are normal. Bones/joints: No acute osseous pathology is identified. IMPRESSION: Patchy parenchymal opacities at the right lung base suspicious for COVID-19 pneumonia. Thank you for allowing us to participate in the care of your patient. Dictated and Authenticated by: Tessie Arelalno MD 02/06/2020 10:35 PM Central Time ([place] & [place]) [place]
== END 2020-02-07 06:43 ==
LOC: JD.ED 20:33
DX: U07.1 COVID-19 (principal); R09.02 Hypoxemia; E10.65 Type 1 diabetes mellitus with hyperglycemia; F41.9 Anxiety disorder, unspecified; F32.9 Major depressive disorder, single episode, unspecified; E66.09 Other obesity due to excess calories; Z68.41 Body mass index [BMI] 40.0-44.9, adult; Z88.8 Allergy status to other drugs, medicaments and biological substances; Z88.5 Allergy status to narcotic agent; Z79.01 Long term (current) use of anticoagulants; Z79.899 Other long term (current) drug therapy
CPT/HCPCS: 36415; 36600; 71045; 80053; 81001; 82009; 82728; 82803; 82962; 83036; 83605; 83615; 83735; 83880; 83930; 84484; 85025; 85379; 85610; 85652; 85730; 86140; 87086; 93005; 96365; 96375; 99285; A9270; J1815; J2405; J7030; J7042; J7050; 93010